=== PATIENT | female | born 1990 | race Caucasian/White ===

== ENCOUNTER 2020-04-19 14:35 | Inpatient (IN) | payer MEDICAID, SELFPAY ==
[~2020-04-19] VITALS: Ht 157.5 cm; Wt 69.4 kg
[2020-04-19 14:35] VITALS: BP_SYST 164
[~2020-04-19 14:35] MED LIST: IBUP-1969 PO
--- NOTE | 2020-04-19 14:35 | NUR ---
Patient triaged and placed in waiting room. VSS and patient appears in no acute distress at this time. Accompanied by self, awaiting available bed, and MD notified of need for MSE.
[2020-04-19 15:20] LABS: BASOPHILS # (AUTO) 0.1 K/uL (0.0-0.2); BASOPHILS % (AUTO) 0.7 % (0.0-2.0); EOSINOPHILS # (AUTO) 0.3 K/uL (0.0-0.4); EOSINOPHILS % (AUTO) 3.4 % (0.0-4.0); HEMATOCRIT 43.8 % (36-48); HEMOGLOBIN 15.2 g/dL (12.0-16.0); LYMPHOCYTES # (AUTO) 2.5 K/uL (1.0-5.5); LYMPHOCYTES % (AUTO) 25.7 % (20.5-51.5); MEAN CORPUSCULAR HEMOGLOBIN 30 pg (27-31); MEAN CORPUSCULAR HGB CONC 35 % (32-36); MEAN CORPUSCULAR VOLUME 87 fL (79.0-98.0); MONOCYTES # (AUTO) 0.6 K/uL (0.0-1.0); MONOCYTES % (AUTO) 6.2 % (1.7-9.3); NEUTROPHILS # (AUTO) 6.3 K/uL (1.8-7.7); PLATELET COUNT (AUTO) 277 K/uL (130-430); RED BLOOD CELL COUNT(AUTO) 5.05 MIL/uL (4.2-6.2); RED CELL DISTRIBUTION WIDTH 12.4 % (9.0-15.0); WHITE BLOOD COUNT (AUTO) 9.8 K/uL (4.8-10.8)
[2020-04-19 15:47] LABS: PROTHROMBIN TIME 10.3 SECS (9.5-12.5)
[2020-04-19 15:48] LABS: CALCIUM 9.1 mg/dL (8.4-11.0); CREATININE 0.65 mg/dL (0.55-1.30)
[2020-04-19] MEDS ORDERED: HYDROcodone/ACETAMIN 5-325 MG TAB (NORCO/ VICODIN) PO ONE (17:00)
--- NOTE | 2020-04-19 17:01 | NUR ---
DR COOK EVALUATING PT IN TRIAGE ROOM.
[2020-04-19] MEDS ORDERED: NACL 0.9% 1,000 ML IV ONE (17:15)
[2020-04-19] MEDS ORDERED: PROCHLORPERAZINE EDISYLATE 10 MG/2 ML VIAL IVP ONE (17:15)
[2020-04-19] MEDS ORDERED: DIPHENHYDRAMINE INJ 50 MG/ML VIAL IVP ONE (17:15)
[2020-04-19] MEDS ORDERED: DEXAMETHASONE SOD PHOSPHATE 10 MG/ML VIAL IVP ONE (17:15)
--- NOTE | 2020-04-19 17:35 | NUR ---
BROUGHT BACK TO BED #3 AND TRIAGED. REPORT GIVEN TO MARBELLA
--- NOTE | 2020-04-19 17:50 | NUR ---
Patient presented ER C/O headache. Patient Ambulatory to ER, A&Ox4, afebrile, skin pink and warm, denies N/V/D, pain 5/10. Patient state she has headache & dizziness x1 month, denies head injury.
--- NOTE | 2020-04-19 19:05 | NUR ---
Report to September RN
[2020-04-19] MEDS ORDERED: DIPHENHYDRAMINE INJ 50 MG/ML VIAL ONE (19:27)
[2020-04-19] MEDS ORDERED: PROCHLORPERAZINE EDISYLATE 10 MG/2 ML VIAL ONE (19:28)
[2020-04-19] MEDS ORDERED: LORazepam 2 MG/ML VIAL IVP ONE (20:30)
--- NOTE | 2020-04-19 21:08 | NUR ---
Patient resting quietly. No acute distress noted. Vital signs within normal range.
--- NOTE | 2020-04-19 22:10 | NUR ---
Patient will be admitted to care of Dr. Esparza. Admitted to TELE unit. Will go to room 116B. Belongings list completed. Complete and up to date summary report printed. SBAR report to be given at bedside with opportunity for questions.
--- NOTE | 2020-04-19 22:31 | NUR ---
ADMIT NOTE Received pt from ER to the floor with a diagnosis of headache. Admission process initiated. patient oriented to pain management, safety and call light-teach back done.
[2020-04-19 22:40] VITALS: BP_SYST 120
[2020-04-19] MEDS ORDERED: LORazepam 2 MG/ML VIAL IVP PRN (22:45)
[2020-04-19] MEDS ORDERED: ACETAMINOPHEN 325 MG TABLET PO PRN (22:45)
[2020-04-19] MEDS ORDERED: MORPHINE 2 MG/ML INJ. SYRINGE IVP PRN (22:45)
[2020-04-19] MEDS ORDERED: ALBUTEROL SULFATE 0.083% 2.5 MG/3 ML VIAL.NEB INH PRN (22:45)
[2020-04-19] MEDS ORDERED: NALOXONE HCL 0.4 MG/ML AMP (NARCAN) IVP PRN (22:45)
--- NOTE | 2020-04-19 23:01 | NUR ---
CONSULT REASON FOR CONSULT: SEVER HEADACHE CONSULTING PHYSICIAN: DR. URIAS ORDERING PHYSICIAN: DR. ANDINO NOTIFIED DR. URIAS ABOUT THE PATIENT
[2020-04-19 23:12] VITALS: BP_SYST 120
--- NOTE | 2020-04-19 23:30 | NUR ---
RN NOTE: PT RESTING IN BED, IN NO ACUTE DISTRESS, DENIES PAIN AT THIS TIME. PT FILLED OUT MRI AND CONTRAST QUESTIONNAIRES. 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 SAFETY PRECAUTIONS MAINTAINED. WILL MONITOR.
[2020-04-20 00:09] VITALS: BP_SYST 126
--- NOTE | 2020-04-20 02:12 | NUR ---
RESTING PT RESTING IN BED, NO S/S OF ACUTE DISTRESS NOTED, BREATHING IS EVEN AND UNLABORED TO ROOM AIR. SAFETY MAINTAINED. WILL MONITOR.
[2020-04-20 06:58] LABS: BASOPHILS % (AUTO) 0.1 % (0.0-2.0); HEMOGLOBIN 15.3 g/dL (12.0-16.0); LYMPHOCYTES # (AUTO) 1.3 K/uL (1.0-5.5); LYMPHOCYTES % (AUTO) 12.2 % (20.5-51.5); MEAN CORPUSCULAR HEMOGLOBIN 30 pg (27-31); MEAN CORPUSCULAR HGB CONC 34 % (32-36); MEAN CORPUSCULAR VOLUME 87 fL (79.0-98.0); MONOCYTES # (AUTO) 0.1 K/uL (0.0-1.0); MONOCYTES % (AUTO) 0.9 % (1.7-9.3); NEUTROPHILS # (AUTO) 9.5 K/uL (1.8-7.7); NEUTROPHILS % (AUTO) 86.8 % (40.0-70.0); PLATELET COUNT (AUTO) 270 K/uL (130-430); RED BLOOD CELL COUNT(AUTO) 5.16 MIL/uL (4.2-6.2); RED CELL DISTRIBUTION WIDTH 12.7 % (9.0-15.0); WHITE BLOOD COUNT (AUTO) 10.9 K/uL (4.8-10.8)
--- NOTE | 2020-04-20 07:30 | NUR ---
OPENING NOTES: RECEIVED PATIENT FROM WATER RESOURCE ENGINEER NURSE. PATIENT IS AWAKE AND ALERT x4 LAYING DOWN IN BED. PATIENT IS TOLERATING OXYGEN ON ROOM AIR WITH NO SIGNS OF DISTRESS OR SHORTNESS OF BREATH NOTED. IV SITE IS PATENT WITH NO SIGNS OF INFILTRATION NOTED. PATIENT DENIES ANY PAIN AT THE MOMENT. PATIENT IN STABLE CONDITION. SAFETY, FALL AND ASPIRATION PRECAUTIONS ARE IN PLACE. BED LOCKED IN LOWEST POSITION WITH CALL LIGHT IN REACH. WILL CONTINUE TO MONITOR PATIENT FOR ANY CHANGES.
[2020-04-20 07:41] LABS: CALCIUM 9.1 mg/dL (8.4-11.0); CREATININE 0.54 mg/dL (0.55-1.30); POTASSIUM 3.9 mmol/L (3.5-5.1); TOTAL BILIRUBIN 0.5 mg/dL (0.0-1.0)
[2020-04-20 08:00] VITALS: BP_SYST 129
--- NOTE | 2020-04-20 10:02 | NUR ---
RN ROUNDS: PATIENT IS AWAKE AND ALERT x4 LAYING DOWN IN BED. PATIENT IS TOLERATING OXYGEN ON ROOM AIR WITH NO SIGNS OF DISTRESS OR SHORTNESS OF BREATH NOTED. IV SITE IS PATENT WITH NO SIGNS OF DISTRESS OR SHORTNESS OF BREATH NOTED. PATIENT IN STABLE CONDITION. WILL CONTINUE TO MONITOR PATIENT FOR ANY CHANGES.
--- NOTE | 2020-04-20 12:10 | NUR ---
RN ROUNDS: PATIENT IS AWAKE AND ALERT x4 LAYING DOWN IN BED. PATIENT IS TOLERATING OXYGEN ON ROOM AIR WITH NO SIGNS OF DISTRESS OR SHORTNESS OF BREATH NOTED. IV SITE IS PATENT WITH NO SIGNS OF INFILTRATION NOTED. PATIENT IN STABLE CONDITION. WILL CONTINUE TO MONITOR PATIENT FOR ANY CHANGES.
[2020-04-20 12:11] VITALS: BP_SYST 125
--- NOTE | 2020-04-20 14:10 | NUR ---
RN ROUNDS: PATIENT AWAKE AND ALERT X4 LAYING DOWN ON BED ON HER PHONE. PATIENT DENIES ANY PAIN AT THE MOMENT. IV SIGNS IS PATENT AND NO SIGNS OF INFILTRATION. PATIENT IN STABLE CONDITION. WILL CONTINUE TO MONITOR FOR ANY CHANGES.
--- NOTE | 2020-04-20 14:25 | NUR ---
MRI: PEARL FROM MRI CAME TO BEEF GRINDER PATIENT. WILL WAIT FOR PATIENT TO ARRIVE BACK TO UNIT.
[2020-04-20] MEDS ORDERED: GADOBENATE DIMEGLUMINE 529 MG/ML, 15 ML VIAL IV ONE (14:32)
[2020-04-20 16:20] VITALS: BP_SYST 121
--- NOTE | 2020-04-20 16:36 | NUR ---
RN ROUNDS: PATIENT IS AWAKE SITTING ON A CHAIR ON BEDSIDE. PATIENT DENIES ANY PAIN AT THE MOMENT. PATIENT IS TOLERATING OXYGEN ON ROOM AIR. NO SIGNS OF DISTRESS NOTED. IV INTACT WITH NO SIGNS OF INFILTRATION. PATIENT IS IN STABLE CONDITION. WILL CONTINUE TO MONITOR FOR ANY CHANGES.
--- NOTE | 2020-04-20 17:42 | NUR ---
MD DORCAS BYERS CALLED AT SPOKE WITH DR.KANGARLU BERNARD SONIA MANUFACTURING LABORER.
--- NOTE | 2020-04-20 17:45 | NUR ---
CALLED: SPOKE WITH DR. URIAS. INFORMED HIM OF NEGATIVE MRI AND NEGATIVE CT HEAD. STATED SHE IS CLEAR FOR DISCHARGE AND CAN FOLLOW-UP WITH DR. URIAS IN [address] GUAJARDO WHO IS DATA ENTRY ANALYST FOR DR. ANDINO. AWAITING CALL BACK. Addendum: 04/20/20 at 1809 by Edenilson Pnea RN 1805: DR. ANDINO CALLED BACK GAVE DISCHARGE ORDER HOME.
--- NOTE | 2020-04-20 18:01 | NUR ---
rounds late entry due to patient care 0840 Patient in bed, awake alert and oriented reading her bible. patient stated that Dr Houston neurologist was here this am to see her and that she is made aware of the CT head result and now just waiting to have an MRI of the brain for Dr. Houston to review.
[2020-04-20 18:17] VITALS: BP_SYST 121
--- NOTE | 2020-04-20 18:50 | NUR ---
D/C Patient: Patient given medication reconciliation form and D/C instructions. Exit Care provided. Patient verbalized understanding. MD discussed with patient the results and treatment provided. Ambulatory with steady gait for discharge to home and wheelchaired outside. Patient in stable condition, ID band removed. IV catheter removed, intact and dressing applied, no active bleeding. Patient educated on pain management and follow up plan. All belongings sent with patient.
== END 2020-04-20 18:55 | disposition home or self-care (01) | DRG 54 ==
LOC: SED 14:35 → STU 22:04
PROVIDERS: ADMIT Internal Medicine Hospice and Palliative Medicine; ATTEND Internal Medicine Hospice and Palliative Medicine
DX: G44.209 Tension-type headache, unspecified, not intractable (principal); E78.5 Hyperlipidemia, unspecified; E78.00 Pure hypercholesterolemia, unspecified; Z20.828 Contact with and (suspected) exposure to other viral communicable diseases
CPT/HCPCS: 36415; 70450-TC; 70553; 76376; 80048; 80053; 84703; 85025; 85610-TC; 93005; 96361; 96374; 96375; 99291; A9577; G0378; G0482; J0780; J1200; J2060